=== PATIENT | female | born 1970 | race Caucasian/White ===

== ENCOUNTER 2016-11-24 11:38 | Emergency (ER) | payer BC, OTHER ==
[2016-11-24] MEDS ORDERED: HYDROmorphone 1 MG/ML SYRINGE IVP STA (12:05)
[2016-11-24] MEDS ORDERED: SODIUM CHLORIDE 0.9% 1,000 ML IV ONE (12:05)
[2016-11-24] MEDS ORDERED: ONDANSETRON 4 MG/2 ML VIAL IVP STA (12:05)
--- NOTE | 2016-11-24 12:18 | ED Physician Documentation ---
PD HPI ABD PAIN - Stated complaint Stated Complaint: ABD PX - Chief complaint Chief Complaint: Abd Pain - History obtained from History obtained from: Patient - History of Present Illness Timing - onset: Enter time (429), Today Timing - duration: Hours Timing - details: Gradual onset, Still present Quality: Sharp, Pain Location: RLQ Radiation: Lower back Improved by: Laying still Worsened by: Moving, Breathing, Position, Palpation Associated symptoms: Nausea Similar symptoms before: Has not had sx before Recently seen: Clinic (Seen in the clinic by Dr. Quintana with concern for appendicitis.) Review of Systems Constitutional: reports: Chills. denies: Fever Eyes: denies: Decreased vision Ears: denies: Ear pain Nose: denies: Congestion Throat: denies: Sore throat Cardiac: denies: Chest pain / pressure, Palpitations Respiratory: denies: Dyspnea, Cough GI: reports: Abdominal Pain, Nausea. denies: Vomiting, Constipation, Diarrhea : denies: Dysuria, Frequency Skin: denies: Rash Musculoskeletal: denies: Neck pain, Back pain, Extremity pain Neurologic: denies: Generalized weakness, Focal weakness, Numbness PD PAST MEDICAL HISTORY - Past Surgical History Past Surgical History: Yes - Present Medications Home Medications: Ambulatory Orders Medication Instructions Recorded Confirmed HYDROcod/ACETAM 5/325 [[place] 5/325] 1 - 2 ea PO Q6H PRN #15 tablet 11/24/16 - Allergies Allergies/Adverse Reactions: Allergies Allergy/AdvReac Type Severity Reaction Status Date / Time No Known Drug Allergies Allergy Verified 11/24/16 11:50 - Social History Does the pt smoke?: Yes Smoking Status: Current every day smoker Does the pt drink ETOH?: Yes Does the pt have substance abuse?: No - Immunizations Immunizations are current?: No Immunizations: TDAP current <10years - POLST Patient has POLST: No PD ED PE NORMAL - Vitals Vital signs reviewed: Yes (hypertensive mild ) - General General: Alert and oriented X 3, No acute distress, Well developed/nourished - HEENT HEENT: Atraumatic, PERRL - Neck Neck: Supple, no meningeal sign, No bony TTP - Cardiac Cardiac: RRR, No murmur - Respiratory Respiratory: No respiratory distress, Clear bilaterally - Abdomen Abdomen: Soft, Other (RLQ tenderness localized to [place] without garding but with referred tenderness that is mild. No right upper quadrant tenderness and no flank tenderness. ) - Back Back: No CVA TTP, No spinal TTP - Derm Derm: Normal color, Warm and dry, No rash - Extremities Extremities: No deformity, No edema - Neuro Neuro: Alert and oriented X 3, No motor deficit, No sensory deficit, Normal speech - Psych Psych: Normal mood, Normal affect Results - Vitals Vitals: Vital Signs - 24 hr 11/24/16 11/24/16 11/24/16 11:48 13:43 15:30 Temperature 36.4 C L 37.3 C Heart Rate 71 73 61 Respiratory 14 17 17 Rate Blood Pressure 131/83 H 117/63 128/69 O2 Saturation 100 100 97 Oxygen O2 Source Room air - Labs Labs: Laboratory Tests 11/24/16 11/24/16 11/24/16 12:08 12:08 12:32 WBC 10.0 RBC 4.30 Hgb 14.2 Hct 42.0 MCV 97.8 MCH 33.1 H MCHC 33.8 RDW 13.0 Plt Count 231 MPV 7.1 L Neut # 8.2 H Lymph # 1.4 L [place] # 0.4 Eos # 0.0 Baso # 0.0 Absolute Nucleated RBC 0.00 Nucleated RBCs 0.0 Sodium 135 Potassium 3.8 Chloride 99 L Carbon Dioxide 25 Anion Gap 11.0 BUN 12 Creatinine 0.7 Estimated GFR (MDRD) 90 Glucose 103 H Calcium 9.8 Total Bilirubin 1.2 H AST 23 ALT 17 Alkaline Phosphatase 55 Total Protein 8.2 Albumin 5.1 Globulin 3.1 Albumin/Globulin Ratio 1.6 Lipase 20 L Urine Color YELLOW Urine Clarity CLEAR Urine pH 5.5 Ur Specific [place] <=1.005 Urine Protein NEGATIVE Urine Glucose (UA) NEGATIVE Urine Ketones NEGATIVE Urine Occult Blood NEGATIVE Urine Nitrite NEGATIVE Urine Bilirubin NEGATIVE Urine Urobilinogen 0.2 (NORMAL) Ur Leukocyte Esterase NEGATIVE Ur Microscopic Review NOT INDICATED Urine Culture Comments NOT INDICATED Urine HCG, Qual NEGATIVE - Rads (name of study) CT abdomen and pelvis without Radiology: Prelim report reviewed (Impression: No urinary tract stones or obstruction.), Discussed with rads (Specifically the appendix appears normal on exam to the radiologist.), EMP read indepedently, See rad report PD MEDICAL DECISION MAKING - ED course Complexity details: reviewed old records, reviewed results, re-evaluated patient , considered differential, d/w patient ED course: 46 y/o female with right lower quadrant pain that examined like appendicitis but the patient was able to drink a lot of fluid prior to visiting the doctor and her CT shows a normal appearing appendix and a normal WBC. An ultrasound of the pelvis is obtained with findings consistent with ovarian cyst. The patient has excellent pain control with pain medications and is discharged to home. Departure - Departure Disposition: Home, Self Care Clinical Impression: Ovarian cyst Qualifiers: Laterality: bilateral Qualified Code(s): N83.201 - Unspecified ovarian cyst, right side Condition: Stable Instructions: ED Cyst Ovarian Follow-Up: Garrison Quintana MD [Primary Care Provider] - Prescriptions: HYDROcod/ACETAM 5/325 [[place] 5/325] 1 - 2 ea PO Q6H PRN #15 tablet PRN Reason: Pain Discharge Date/Time: 11/24/16 15:35
[2016-11-24 12:22] LABS: BASOPHILS % (AUTO) 0.5 %; EOSINOPHILS % (AUTO) 0.1 %; HGB - HEMOGLOBIN 14.2 g/dL (12.0-16.0); LYMPHOCYTES # (AUTO) 1.4 10^3/uL (1.5-3.5); LYMPHOCYTES % (AUTO) 13.7 %; MEAN CORPUSCULAR HEMOGLOBIN 33.1 pg (27.0-31.0); MEAN CORPUSCULAR HGB CONC 33.8 g/dL (32.0-36.0); MEAN CORPUSCULAR VOLUME 97.8 fL (81.0-99.0); MEAN PLATELET VOLUME 7.1 fL (7.9-10.8); MONOCYTES # (AUTO) 0.4 10^3/uL (0.0-1.0); MONOCYTES % (AUTO) 3.7 %; NEUTROPHILS # (AUTO) 8.2 10^3/uL (1.5-6.6)
[2016-11-24] MEDS ORDERED: HYDROmorphone 1 MG/ML SYRINGE ONE (12:23)
[2016-11-24] MEDS ORDERED: ONDANSETRON 4 MG/2 ML VIAL ONE (12:23)
[2016-11-24 12:28] LABS: ALBUMIN/GLOBULIN RATIO 1.6 (1.0-2.2); BILIRUBIN,TOTAL 1.2 mg/dL (0.2-1.0); CALCIUM 9.8 mg/dL (8.5-10.3); CREATININE 0.7 mg/dL (0.4-1.0); POTASSIUM 3.8 mmol/L (3.5-5.0); TOTAL PROTEIN 8.2 g/dL (6.7-8.2)
[2016-11-24 12:49] LABS: BILIRUBIN,URINE NEGATIVE (NEGATIVE); PH,URINE 5.5 PH (5.0-7.5)
[2016-11-24 12:51] LABS: HCG UR QUAL NEGATIVE; UA CHARGE (STRIP ONLY) YES; UR CULTURE IF IND NOT INDICATED
--- NOTE | 2016-11-24 13:48 | CT Report ---
EXAM: CT ABDOMEN AND PELVIS EXAM DATE: 11/24/2016 01:17 PM. CLINICAL HISTORY: RLQ pain . COMPARISONS: None. TECHNIQUE: Routine axial helical CT imaging was performed through the abdomen and pelvis without IV c ontrast. Reconstructions: Coronal and sagittal. In accordance with CT protocol optimization, one or more of the following dose reduction techniques w ere utilized for this exam: automated exposure control, adjustment of mA and/or KV based on patient s ize, or use of iterative reconstructive technique. FINDINGS: Lung Bases: Unremarkable. Abdominal Organs: Noncontrast images of the abdominal organs are grossly unremarkable. Gallbladder/bile ducts: No significant abnormalities. Peritoneal Cavity: No free fluid, free air or angelika adenopathy. Bowel is grossly unremarkable. Pelvic Organs: No bladder stones. There are small bilateral adnexal hypodensities which probably repr esent ovarian cysts. Vasculature: Unremarkable. Other: None. IMPRESSION: No urinary tract stones or obstruction. Referring Provider Line: [phone] SITE ID: [id number]
[2016-11-24 15:36] VITALS: BP 128/69
--- NOTE | 2016-11-24 16:00 | Ultrasound Report ---
PELVIC ULTRASOUND, TRANSABDOMINAL AND TRANSVAGINAL: 11/24/2016 CLINICAL HISTORY: Right lower quadrant pain. TECHNIQUE: Transabdominal pelvic ultrasound performed for global evaluation. Transvaginal pelvic ult rasound performed for detailed evaluation. Real-time scanning performed and static images obtained. FINDINGS: Transabdominal and transvaginal ultrasound demonstrates the uterus to measure 8.1 x 4.9 x 3.7 cm for a volume of 76.8 cc. Endometrial echo complex is 6.9 mm. This is within normal limits fo r a menstruating female. The central intrauterine echo has a normal configuration, both on transabdominal and transvaginal ultrasound. Right ovary measures 3.5 x 2.3 x 2.5 cm. Right ovarian cyst is seen measuring 1.8 x 1.9 x 2 cm. Left ovary measures 4.1 x 3.9 x 3.4 cm for a volume of 28.4 cc. Left ovary contains a left ovarian c yst measuring 3 x 3.1 x 3.2 cm. Normal venous and arterial flow is noted in association with both ovaries. Tiny amount of free fluid is noted in the cul-de-sac. IMPRESSION: BILATERAL OVARIAN CYSTS ARE NOTED. THE RIGHT OVARIAN CYST MEASURES 1.8 X 1.9 X 2.0 CM. THE LEFT OVARIAN CYST MEASURES 3 X 3.1 X 3.2 CM. COMMENT: Dr. Amezcua informed patient's emergency room physician, Dr. Lake, of the above finding s on 11/24/2016 at 3:25 p.m. JOB #: [id number] EXT JOB #:[id number]
== END 2016-11-24 15:35 | disposition home or self-care (01) ==
LOC: ED 11:38
DX: N83.202 Unspecified ovarian cyst, left side (principal); N83.201 Unspecified ovarian cyst, right side; F17.200 Nicotine dependence, unspecified, uncomplicated
CPT/HCPCS: 36415; 51798; 74176; 76830; 76856; 80053; 81003; 81025; 83690; 85025; 96361; 96374; 96375; 99284; J1170; 81001; 87086

== ENCOUNTER 2017-08-14 15:53 | Outpatient (CLI) | payer BC ==
[2017-08-14] MEDS ORDERED: IOPAMIDOL-300 100 ML VIAL ONE (16:14)
[2017-08-14] MEDS ORDERED: IOPAMIDOL-300 100 ML VIAL IVP ONE (16:29)
--- NOTE | 2017-08-15 11:15 | CT Report ---
CHEST CT: 08/14/2017. COMPARISON: Abdomen and pelvis CT 11/24/2016. INDICATION: Pulmonary nodule. TECHNIQUE: Axial imaging of the chest was performed with coronal and sagittal reformats. 80 mL Isovue-300 intravenous contrast. FINDINGS: There are mild cystic changes of the lungs. Despite the history, no nodules or masses are identified. There is minimal scarring of the lungs. No hilar or mediastinal adenopathy. Limited upper abdomen appears unremarkable. No bone lesions. IMPRESSION: THERE ARE MILD CYSTIC CHANGES OF THE LUNGS. NO EVIDENCE OF PULMONARY NODULE OR MASS. CT DOSE REDUCTION STATEMENT In accordance with CT protocol optimization, one or more of the following dose reduction techniques were utilized for this exam: automated exposure control, adjustment of mA and/or KV based on patient size, or use of iterative reconstructive technique. TD: 08/15/2017 11:14 MTDD
== END 2017-08-14 15:54 | disposition home or self-care (01) ==
LOC: DI 15:53
PROVIDERS: ATTEND Family Medicine
DX: J98.4 Other disorders of lung (principal)
CPT/HCPCS: 71260; Q9967

== ENCOUNTER 2023-11-24 12:55 | Emergency (ER) | payer BC, OTHER ==
--- NOTE | 2023-11-24 13:59 | XRAY Report ---
PROCEDURE: Wrist 3+V LT INDICATIONS: L wrist pain TECHNIQUE: 4 views of the wrist were acquired. COMPARISON: None. FINDINGS: Bones: No fractures or dislocations. No suspicious bony lesions. Soft tissues: No suspicious soft tissue calcifications or masses. IMPRESSION: No acute bony abnormality. If pain persists with conservative management, consider repeat x-ray in 10 -14 days or cross-sectional imaging. Reviewed by: Aric Douglass MD on 11/24/2023 1:58 PM PDT Approved by: Aric Douglass MD on 11/24/2023 1:58 PM PDT Station ID: [id number]
--- NOTE | 2023-11-24 15:49 | ED Physician Documentation ---
History of Present Illness - Stated complaint Stated Complaint: L HAND/WRIST PX - Chief complaint Chief Complaint: Trauma Ext - History obtained from History obtained from: Patient - History of Present Illness Pain level max: 7 Pain level now: 7 - Additonal information Additional information: 53-year-old female states that she was lifting a box and felt a sharp pain in her left hand and wrist. States that the pain has persisted all week and is continuing to worsen. She states she had de Quervain's tendinitis in the past. Worse with moving, better with rest. Has not taken anything for the pain. No numbness or tingling. No deformity. She states she cannot move her fingers without pain. Her left side is affected. She is right-handed. PD PAST MEDICAL HISTORY - Past Medical History Past Medical History: Yes GI: GERD [employer]ER: Ovarian cysts - Past Surgical History Past Surgical History: Yes General: Other - Present Medications Home Medications: Ambulatory Orders Medication Instructions Recorded Confirmed HYDROcod/ACETAM 5/325 [[place] 5/325] 1 - 2 ea PO Q6H PRN #15 tablet 11/24/16 Meloxicam [Mobic] 7.5 mg PO BID PRN #20 tablet 11/24/23 oxyCODONE [Roxicodone] 5 - 10 mg PO Q6H PRN #14 tablet 11/24/23 MDD 6 - Allergies Allergies/Adverse Reactions: Allergies Allergy/AdvReac Type Severity Reaction Status Date / Time No Known Drug Allergies Allergy Verified 11/24/23 13:28 - Social History Does the pt smoke?: Yes Smoking Status: Current every day smoker Does the pt drink ETOH?: Yes Does the pt have substance abuse?: No - Immunizations Immunizations are current?: No Immunizations: TDAP current <10years - POLST Patient has POLST: No PD ED PE NORMAL - Vitals Vital signs reviewed: Yes - General General: Alert and oriented X 3, No acute distress - HEENT HEENT: Moist mucous membranes - Neck Neck: Supple, no meningeal sign - Derm Derm: Warm and dry - Extremities Extremities: Other - Neuro Neuro: Alert and oriented X 3 - Psych Psych: Normal mood, Normal affect - Free text exam Free text exam: L UE - There is pain with extension of the fingers over the left hand. There is no palmar tenderness. No swelling. No erythema. There is tenderness over the tendons at the volar aspect of the wrist. No significant swelling. No defo rmity. No bony tenderness over the forearm, wrist or hand. Neurovascular intact. Results - Vitals Vitals: Vital Signs - 24 hr 11/24/23 11/24/23 13:24 16:06 Temperature 36.7 C 36.0 C L Heart Rate 74 61 Respiratory 18 20 Rate Blood Pressure 160/92 H 160/105 H O2 Saturation 99 100 Oxygen O2 Source Room air - Rads (name of study) L wrist xray Relevant Findings:: Final report received, See rad report Procedures - Splint (location) - Minor L forearm/wrist Splint applied by: Physician, Tech Type of splint: Fiberglass, Short arm Other: Patient tolerated well, No complications, Neurovascular intact PD Medical Decision Making - ED course Complexity details: reviewed results, re-evaluated patient, considered differential, d/w patient ED course: Patient with what appears to be a tendinitis of the left forearm, also affecting the left hand. Does not affect the thumb necessarily. Suspect that this is likely a strain from lifting a heavy box. Also could be tendinitis or recurrence of her tenosynovitis. No signs of infection. No signs of deep space infection in the hand. Will place on pain medication for home and placed in splint for a few days for comfort. Will have her follow-up with her doctor for referral to orthopedics and possibly physical therapy. Patient counseled regarding signs and symptoms for which I believe and urgent re-evaluation would be necessary. Patient with good understanding of and agreement to plan and is comfortable going home at this time This document was made in part using voice recognition software. While efforts are made to proofread this document, sound alike and grammatical errors may occur. Departure - Departure Disposition: Home, Self Care Clinical Impression: Tendonitis Condition: Good Instructions: Tendonitis and Tenosynovitis Follow-Up: [facility] [Provider Group] - Within 1 week Prescriptions: Meloxicam [Mobic] 7.5 mg PO BID PRN #20 tablet PRN Reason: Pain oxyCODONE [Roxicodone] 5 - 10 mg PO Q6H PRN #14 tablet MDD 6 PRN Reason: pain Comments: Your prescription was sent to [facility] in [place]. Wear the splint for the next few days. Return if you worse and start to gently stretch your hand and wrist. I am prescribing a short course of narcotic pain medication for you. These are potentially dangerous and addictive medications that should be used carefully. These medications may constipate you. Take an kqci-ylj-iizolcc stool softener (docusate) twice daily with plenty of water while taking these medications. If you go 24 hours without a bowel movement, take snwd-yms-utcublz miralax, per package instructions. Do not drink or drive while taking these medications. If you received narcotic or sedating medications while in the emergency department, do not drive for 24 hours. Store this medication in a safe, secure place and out of reach of children. It is a violation of federal law to give or sell this medication to another person or to use in a manner other than prescribed. The ED will not refill narcotic prescriptions, including prescriptions lost or stolen. To dispose of unwanted medications: 1. [facility] at [address] in [place] has a medication drop box. They accept prescription medications (in pill form) Monday through Monday 9:00 a.m. to 5:00 p.m. 2. [facility] [employer] accepts prescription medications (in pill form only) for disposal year round. Call for more information. 3. Contact the [facility] for the next [facility] sponsored prescription drug collection event. , [phone], or [phone]; Forms: PCP List Discharge Date/Time: 11/24/23 16:27
[2023-11-24] MEDS: oxyCODONE 5 MG TABLET PO STA (15:53)
[2023-11-24 16:12] VITALS: BP 160/105; O2SAT 100
== END 2023-11-24 16:27 | disposition home or self-care (01) ==
LOC: ED 12:55
DX: M77.8 Other enthesopathies, not elsewhere classified (principal); X50.0XXA Overexertion from strenuous movement or load, initial encounter; Y93.89 Activity, other specified; F17.200 Nicotine dependence, unspecified, uncomplicated
CPT/HCPCS: 29125; 73110; 99283; 99284; A9270